=== PATIENT | male | born 1960 | race Caucasian/White ===

== ENCOUNTER 2022-10-30 07:27 | Emergency (ER) | payer BC ==
[~2022-10-30] VITALS: Ht 182.9 cm; Wt 90.7 kg
[2022-10-30 07:30] VITALS: BP_SYST 136
[2022-10-30] MEDS ORDERED: ZIT250 PO (08:43)
[2022-10-30] MEDS ORDERED: AMOX500C2 PO (08:43)
[2022-10-30] MEDS ORDERED: ERYEYE EACH EYE (08:44)
[2022-10-30] MEDS ORDERED: AMOXICILLIN 500 MG CAPSULE PO ONE (08:45)
[2022-10-30] MEDS ORDERED: AZITHROMYCIN 250 MG TABLET PO ONE (08:45)
[2022-10-30 10:03] VITALS: BP_SYST 126
== END 2022-10-30 10:03 | disposition home or self-care (01) ==
LOC: SED 07:27
DX: J10.1 Influenza due to other identified influenza virus with other respiratory manifestations (principal); J18.9 Pneumonia, unspecified organism; H10.33 Unspecified acute conjunctivitis, bilateral; R05.9 Cough, unspecified; R09.81 Nasal congestion; R51.9 Headache, unspecified; I10 Essential (primary) hypertension; Z88.8 Allergy status to other drugs, medicaments and biological substances; Z79.899 Other long term (current) drug therapy; Z20.822 Contact with and (suspected) exposure to COVID-19
CPT/HCPCS: 99284; 71045; 87426; 36415; 87804 ×2; Q0144